=== PATIENT | male | born 1960 | race Caucasian/White ===

== ENCOUNTER 2018-03-02 18:48 | Emergency (ER) | payer OTHER ==
[2018-03-02] MEDS: morphine 4 MG/ML VIAL IV (20:24)
[2018-03-02] MEDS: SODIUM CHLORIDE 0.9% 1L BAG IV* (20:24)
[2018-03-02] MEDS: ACETAMINOPHEN 325 MG TAB PO (20:24)
[2018-03-02] MEDS: ONDANSETRON 4 MG INJ IV (20:24)
[2018-03-02 20:39] LABS: ADD MAN DIFF? NO
[2018-03-02 20:44] LABS: WHITE BLOOD COUNT 12.6 10^3/ul (4.8-10.8)
[2018-03-02 20:44] LABS: BASOPHILS % 0.2 % (0.0-2.0); EOSINOPHILS % 0.1 % (0.0-7.0); HEMATOCRIT 44.6 % (42.0-52.0); HEMOGLOBIN 15.5 g/dl (14.0-18.0); LYMPHOCYTES # 1.1 10^3/ul (0.8-2.9); LYMPHOCYTES % 8.4 % (15.0-51.0); MEAN CORPUSCULAR HEMOGLOBIN 30.5 pg (29.0-33.0); MEAN CORPUSCULAR HGB CONC 34.8 g/dl (32.0-37.0); MEAN CORPUSCULAR VOLUME 87.6 fl (82.0-101.0); MEAN PLATELET VOLUME 10.7 fl (7.4-10.4); MONOCYTES % 7.9 % (0.0-11.0); NEUTROPHIL # 10.5 10^3/ul (1.6-7.5); NEUTROPHILS % 82.9 % (39.0-77.0); PLATELET COUNT 201 10^3/UL (140-415); RED BLOOD COUNT 5.09 10^6/ul (4.70-6.10); RED CELL DISTRIBUTION WIDTH 12.3 % (11.5-14.5)
[2018-03-02 20:52] LABS: ADD UMIC YES; UR ASCORBIC ACID NEGATIVE (NEGATIVE); UR BACTERIA FEW /HPF (NONE SEEN); UR BILIRUBIN (Dip) NEGATIVE (NEGATIVE); UR BLOOD (Dip) 1+ mg/dL (NEGATIVE); UR CLARITY CLEAR (CLEAR); UR COLOR AMBER (YELLOW); UR GLUCOSE (Dip) NEGATIVE (NEGATIVE); UR KETONES (Dip) TRACE mg/dL (NEGATIVE); UR LEUKOCYTE ESTERASE (Dip) NEGATIVE Leu/ul (NEGATIVE); UR MUCUS MANY /HPF (NONE SEEN); UR NITRITE (Dip) NEGATIVE (NEGATIVE); UR RBC 2 /HPF (0-5); UR SPECIFIC GRAVITY (Dip) 1.027 (1.003-1.030); UR TOTAL PROTEIN (Dip) 2+ mg/dl (NEGATIVE); UR UROBILINOGEN (Dip) NEGATIVE (NEGATIVE); UR WBC 2 /HPF (0-5)
[2018-03-02 21:03] LABS: LACTIC ACID 1.2 mmol/L (0.5-2.0)
[2018-03-02 21:06] LABS: ALANINE AMINOTRANSFERASE 71 IU/L (13-69); ALBUMIN 4.2 g/dl (3.3-4.9); ALBUMIN/GLOBULIN RATIO 1.27; ALKALINE PHOSPHATASE 124 IU/L (42-121); ANION GAP 16 (8-16); ASPARTATE AMINO TRANSFERASE 52 IU/L (15-46); BILIRUBIN,INDIRECT 1.1 mg/dl (0-1.1); BILIRUBIN,TOTAL 1.1 mg/dl (0.2-1.3); BLOOD UREA NITROGEN 10 mg/dl (7-20); CALCIUM 8.9 mg/dl (8.4-10.2); CARBON DIOXIDE 23 mmol/L (21-31); CHLORIDE 105 mmol/L (97-110); GLUCOSE 132 mg/dl (70-220); INR 1.08; POTASSIUM 3.5 mmol/L (3.5-5.1); PROTIME 14.1 Sec (11.9-14.9); PT RATIO 1.1; SODIUM 140 mmol/L (135-144); TOTAL PROTEIN 7.5 g/dl (6.1-8.1)
[2018-03-02 21:35] LABS: TROPONIN-I < 0.012 ng/ml (0.000-0.120)
[2018-03-02 22:36] LABS: LACTIC ACID 0.7 mmol/L (0.5-2.0)
[2018-03-03] MEDS: KETOROLAC 30 MG INJ IV (00:47)
[2018-03-03 00:56] LABS: LACTIC ACID 0.8 mmol/L (0.5-2.0)
== END 2018-03-03 01:05 | disposition home or self-care (01) ==
LOC: E/R 03-03 01:05
DX: J18.9 Pneumonia, unspecified organism (principal); R40.2142 Coma scale, eyes open, spontaneous, at arrival to emergency department; R40.2252 Coma scale, best verbal response, oriented, at arrival to emergency department; R40.2362 Coma scale, best motor response, obeys commands, at arrival to emergency department; R52 Pain, unspecified
CPT/HCPCS: 36415; 70450; 71045; 80053; 81001; 83605; 84484; 85025; 85610; 85730; 87040; 87086; 93005; 96374; 96375; 99285-25